=== PATIENT | female | born 1985 | race Caucasian/White ===

== ENCOUNTER 2023-08-22 08:06 | Outpatient (CLI) | payer OTHER, SELFPAY | END 2023-08-22 08:07 | disposition home or self-care (01) | PROVIDERS: PCP Nurse Practitioner Family; Visit Provider Nurse Practitioner Family | DX: Z13.29 Encounter for screening for other suspected endocrine disorder (principal); Z13.220 Encounter for screening for lipoid disorders; I10 Essential (primary) hypertension | CPT/HCPCS: 80053; 80061; 82306; 84443; 85027 ==